=== PATIENT | male | born 1990 | race Caucasian/White ===

== ENCOUNTER 2021-06-27 22:58 | Emergency (ER) | payer OTHER ==
[2021-06-27 23:09] VITALS: BP 130/79; PULSE 84; TEMP 98.4; BMI 22.9
[2021-06-28] MEDS ORDERED: SODIUM CHLORIDE 0.9% 500 ML INFUS.BAG IV ONE (00:24)
[2021-06-28] MEDS ORDERED: KETOROLAC TROMETHAMINE 30 MG/1 ML VIAL IVPUSH ONE (00:24)
[2021-06-28] MEDS ORDERED: KETOROLAC TROMETHAMINE 30 MG/1 ML VIAL ONE (00:36)
[2021-06-28 00:39] LABS: BASO % 0.8 % (0-2.0); EOS % 1.6 % (0-4.5); LYMPH % 17.8 % (8-40); MCH 30.7 pg (25.7-33.7); MCHC 35.2 g/dl (32.0-35.9); MEAN CELL VOLUME 87.4 fl (80-96); MEAN PLT VOLUME 9.1 fl (7.5-11.1); NEUT % 70.8 % (42.8-82.8); PLATELET COUNT 117 10^3/uL (134-434); RBC 4.57 M/mm3 (4.00-5.60); RDW 13.6 % (11.9-15.9); WHITE BLOOD COUNT 10.7 K/mm3 (4.0-10.0)
[2021-06-28 01:03] LABS: ALBUMIN 3.6 g/dl (3.4-5.0); BLOOD UREA NITROGEN 15.6 mg/dL (7-18); CALCIUM 8.5 mg/dL (8.5-10.1)
[2021-06-28 01:06] LABS: CREATININE 1.4 mg/dL (0.55-1.3)
[2021-06-28 01:08] LABS: BILIRUBIN,TOTAL 0.8 mg/dL (0.2-1); TOT PROT 6.7 g/dl (6.4-8.2)
== END 2021-06-28 04:08 ==
LOC: JER 22:58
PROC: 3E0233Z Introduction of Anti-inflammatory into Muscle, Percutaneous Approach (ICD-10-PCS; principal; 2021-06-28)
DX: L03.311 Cellulitis of abdominal wall (principal)
CPT/HCPCS: 36415; 74177-TC; 80053; 85025; 99284-25